=== PATIENT | female | born 1930 | race Caucasian/White ===

== ENCOUNTER 2017-05-06 03:58 | Emergency (ER) | payer OTHER ==
[~2017-05-06] VITALS: Ht 152.4 cm; Wt 50.0 kg
[~2017-05-06 03:58] MED LIST: ASPIRIN81 M1 PO; ATIVAN1 MG PO; AVALIDE 300/1 TABLET; Advair HFA 115/21 IH; Aspirin E.C. PO; Augmentin PO; BAYER CHILDREN'81 M1 PO; CEFTIN500 MG PO; COUMADIN,JANTOVE1 MG PO; COUMADIN,JANTOVE5 MG PO; Calan PO; Coumadin,Jantoven PO; ESCITALOPRAM OXA5 MG PO; FISH OIL300 MG PO; FUROSEMIDE40 MG PO; Fish Oil PO; Flonase BOTH NARES; Flora-Q,Risaquad PO; Habitrol,Nicoderm CQ TD; Humibid LA,Mucinex PO; K-Dur PO; Lasix PO; MUCINEX600 MG PO; MULTIVITAMIN1 EAC2 PO; NORCO 5/3251 TABLET PO; Oscal 500 w/Vitamin PO; PRINIVIL10 MG PO; PROVENTIL,2.5 MG/0.5 IH; PROVENTIL,2.5 MG/3 M IH; Protonix PO; Senokot,Sennagen PO; THERAGRAN1 TABLET PO; Ultram PO; VERAPAMIL HCL80 MG PO; VITAMIN B12-FO1 EACH PO; Vicodin,Norco 5/325 PO; WARFARIN SODIUM5 MG PO; Xanax PO; Xopenex IH; Zestril,Prinivil PO; predniSONE PO
[2017-05-06 06:03] LABS: BASOPHIL COUNT 0.1 K/uL (0-0.1); EOSINOPHIL (%) 0.2 % (0-5); HEMATOCRIT 39.1 % (36.0-46.0); IMMATURE GRANULOCYTE (%) 0.5 % (0.0-0.7); IMMATURE GRANULOCYTE COUNT 0.1 K/uL; INSTRUMENT ABS NEUTROPHIL CT 10.9 K/uL; LYMPHOCYTE COUNT 1.1 K/uL (1.0-2.8); MCH 30.7 PG (29.0-34.0); MCV 90.3 FL (83-99); MEAN PLAT.VOLUME 9.9 uM^3 (9.5-12.4); MONOCYTE (%) 6.4 % (3-12); MONOCYTE COUNT 0.8 K/uL (0-0.8); NEUTROPHIL (%) 83.7 % (45-76); NEUTROPHIL COUNT 10.9 K/uL (1.8-6.4); PLATELET COUNT 364 K/uL (156-360); RBC DIS.WIDTH-CV 13.9 % (11.8-14.6); RBC DIS.WIDTH-SD 46.5 % (39-53); RED BLOOD COUNT 4.33 M/uL (3.80-5.20)
[2017-05-06 06:09] LABS: PROTHROMBIN TIME 11.7 SEC (10.2-12.9)
[2017-05-06 06:11] LABS: PTT 29.8 SEC (25-37)
[2017-05-06 06:14] LABS: CHLORIDE 98 mEq/L (99-109); POTASSIUM 2.7 mEq/L (3.7-5.4); SODIUM 135 mEq/L (136-147)
[2017-05-06 06:15] LABS: GLUCOSE 113 mg/dL (70-99)
[2017-05-06 06:17] LABS: ANION GAP 13 MEQ/L (2-14)
[2017-05-06 06:19] LABS: GFR ESTIMATE (CALCULATED) 41 mL/min/
[2017-05-06 06:20] LABS: UREA NITROGEN (BUN) 15 mg/dL (9-23)
[2017-05-06] MEDS ORDERED: TYLENOL WITH C1 EACH PO (06:59)
[2017-05-06 11:15] VITALS: BP 118/57
== END 2017-05-06 12:03 | disposition short-term general hospital (02) ==
LOC: EME → EDBD 03:58 → EME 12:03
PROVIDERS: Emergency Medicine
PROC: 3E0234Z Introduction of Serum, Toxoid and Vaccine into Muscle, Percutaneous Approach (ICD-10-PCS; principal; 2017-05-06)
DX: S72.431A Displaced fracture of medial condyle of right femur, initial encounter for closed fracture (principal); S72.421A Displaced fracture of lateral condyle of right femur, initial encounter for closed fracture; S51.811A Laceration without foreign body of right forearm, initial encounter; W01.0XXA Fall on same level from slipping, tripping and stumbling without subsequent striking against object, initial encounter; Y92.009 Unspecified place in unspecified non-institutional (private) residence as the place of occurrence of the external cause; Z23 Encounter for immunization; I10 Essential (primary) hypertension; J44.9 Chronic obstructive pulmonary disease, unspecified; Z86.711 Personal history of pulmonary embolism; Z86.718 Personal history of other venous thrombosis and embolism; Z79.82 Long term (current) use of aspirin; Z79.01 Long term (current) use of anticoagulants; Z79.52 Long term (current) use of systemic steroids; Z72.0 Tobacco use
CPT/HCPCS: 73090; 73564; 73700; 80048; 85025; 85610; 85730; 86850; 86900; 86901; 93005; 99281; 99285; J2270; J3480; J7030

== ENCOUNTER 2017-06-26 16:42 | Inpatient (IN) | payer OTHER ==
[~2017-06-26] VITALS: Ht 152.4 cm; Wt 42.5 kg
[~2017-06-26 16:42] MED LIST changes: +TYLENOL WITH C1 EACH PO
[2017-06-26 18:02] LABS: HEMATOCRIT 36.3 % (36.0-46.0); HEMOGLOBIN 12.4 G/DL (11.9-15.5); MCH 29.4 PG (29.0-34.0); MCHC 34.2 G/DL (30.0-36.0); PLATELET COUNT 787 K/uL (156-360); RBC DIS.WIDTH-CV 14.8 % (11.8-14.6); RBC DIS.WIDTH-SD 47.1 % (39-53); RED BLOOD COUNT 4.22 M/uL (3.80-5.20); WHITE BLOOD COUNT 12.9 K/uL (4.1-10.2)
[2017-06-26 18:10] LABS: CHLORIDE 95 mEq/L (99-109); POTASSIUM 2.6 mEq/L (3.7-5.4); SODIUM 141 mEq/L (136-147)
[2017-06-26 18:11] LABS: GLUCOSE 109 mg/dL (70-99)
[2017-06-26 18:15] LABS: CREATININE 1.4 mg/dL (0.6-1.3); GFR ESTIMATE (CALCULATED) 38 mL/min/
[2017-06-26 18:16] LABS: UREA NITROGEN (BUN) 15 mg/dL (9-23)
[2017-06-26 20:54] LABS: INTER. NORMALIZED RATIO 1.2
[2017-06-26 20:57] LABS: PTT 31.3 SEC (25-37)
[2017-06-27 00:13] LABS: MAGNESIUM 1.5 mg/dL (1.3-2.7)
[2017-06-27 00:23] LABS: TROP-I INTERPRETATION NEGATIVE; TROPONIN-I 0.08 ng/mL (0.0-0.30)
[2017-06-27 03:53] VITALS: BP 179/91
[2017-06-27 05:49] LABS: BASOPHIL (%) 0.3 % (0-1); EOSINOPHIL (%) 0.2 % (0-5); HEMATOCRIT 33.6 % (36.0-46.0); IMMATURE GRANULOCYTE (%) 0.5 % (0.0-0.7); LYMPHOCYTE (%) 16.4 % (15-42); LYMPHOCYTE COUNT 1.7 K/uL (1.0-2.8); MCH 28.3 PG (29.0-34.0); MCHC 32.7 G/DL (30.0-36.0); MCV 86.4 FL (83-99); MONOCYTE (%) 11.1 % (3-12); MONOCYTE COUNT 1.2 K/uL (0-0.8); NEUTROPHIL (%) 71.5 % (45-76); NEUTROPHIL COUNT 7.4 K/uL (1.8-6.4); PLATELET COUNT 684 K/uL (156-360); RBC DIS.WIDTH-CV 14.8 % (11.8-14.6); RBC DIS.WIDTH-SD 47.1 % (39-53); RED BLOOD COUNT 3.89 M/uL (3.80-5.20); WHITE BLOOD COUNT 10.4 K/uL (4.1-10.2)
[2017-06-27 06:01] LABS: TROP-I INTERPRETATION NEGATIVE; TROPONIN-I 0.07 ng/mL (0.0-0.30)
[2017-06-27 06:14] LABS: CHLORIDE 93 MEQ/L (99-109); GFR ESTIMATE (CALCULATED) 56 mL/min/; GLUCOSE 87 mg/dL (70-99); POTASSIUM 2.5 MEQ/L (3.7-5.4); SODIUM 139 MEQ/L (136-147); UREA NITROGEN (BUN) 11 mg/dL (9-23)
[2017-06-27 07:32] VITALS: BP 146/79
[2017-06-27 08:10] LABS: THYROTROPIN (TSH) 2.2 MIU/L (0.4-5.5)
[2017-06-27 11:46] VITALS: BP 130/74
[2017-06-27] MEDS ORDERED: PROTONIX40 MG PO (11:50)
[2017-06-27] MEDS ORDERED: CALAN80 MG PO (11:50)
[2017-06-27] MEDS ORDERED: LASIX20 MG PO (11:50)
[2017-06-27] MEDS ORDERED: LOPRESSOR25 MG PO (11:51)
[2017-06-27] MEDS ORDERED: IBUPROFEN800 MG PO (11:51)
[2017-06-27] MEDS ORDERED: LIDODERM 5% P1 PATCH TD (11:52)
[2017-06-27] MEDS ORDERED: MIRALAX17 GM PO (11:52)
[2017-06-27] MEDS ORDERED: ASPIR 8181 M1 PO (11:53)
[2017-06-27] MEDS ORDERED: MUCINEX1200 MG PO (11:54)
[2017-06-27 15:44] VITALS: BP 148/67
[2017-06-27 20:00] VITALS: BP 127/69
[2017-06-28 01:57] VITALS: BP 116/63
[2017-06-28 04:44] VITALS: BP 133/71
[2017-06-28 07:02] LABS: HEMATOCRIT 30.4 % (36.0-46.0); HEMOGLOBIN 9.9 G/DL (11.9-15.5); MCH 28.2 PG (29.0-34.0); MCHC 32.6 G/DL (30.0-36.0); MCV 86.6 FL (83-99); PLATELET COUNT 634 K/uL (156-360); RBC DIS.WIDTH-CV 14.9 % (11.8-14.6); RBC DIS.WIDTH-SD 47.4 % (39-53); RED BLOOD COUNT 3.51 M/uL (3.80-5.20); WHITE BLOOD COUNT 8.3 K/uL (4.1-10.2)
[2017-06-28 07:18] VITALS: BP 142/65
[2017-06-28 07:25] LABS: CHLORIDE 95 MEQ/L (99-109); CREATININE 0.9 MG/DL (0.6-1.3); GFR ESTIMATE (CALCULATED) > 59 mL/min/; GLUCOSE 86 mg/dL (70-99); POTASSIUM 2.8 MEQ/L (3.7-5.4); SODIUM 140 MEQ/L (136-147); UREA NITROGEN (BUN) 10 mg/dL (9-23)
[2017-06-28 08:21] LABS: MAGNESIUM 1.9 mg/dl (1.3-2.7)
[2017-06-28 11:01] VITALS: BP 135/65
[2017-06-28 15:12] VITALS: BP 125/67
[2017-06-28 19:04] VITALS: BP 123/56
[2017-06-29] VITALS: BP 130/62
[2017-06-29 04:03] VITALS: BP 143/73
[2017-06-29 06:44] LABS: HEMATOCRIT 30.2 % (36.0-46.0); HEMOGLOBIN 9.7 G/DL (11.9-15.5); MCH 28.3 PG (29.0-34.0); MCHC 32.1 G/DL (30.0-36.0); PLATELET COUNT 610 K/uL (156-360); RBC DIS.WIDTH-SD 48.5 % (39-53); RED BLOOD COUNT 3.43 M/uL (3.80-5.20); WHITE BLOOD COUNT 7.8 K/uL (4.1-10.2)
[2017-06-29 07:20] LABS: CHLORIDE 96 MEQ/L (99-109); CREATININE 0.8 MG/DL (0.6-1.3); GFR ESTIMATE (CALCULATED) > 59 mL/min/; GLUCOSE 81 mg/dL (70-99); SODIUM 135 MEQ/L (136-147); UREA NITROGEN (BUN) 11 mg/dL (9-23)
[2017-06-29 07:25] VITALS: BP 155/78
[2017-06-29 11:06] VITALS: BP 151/71
[2017-06-29 15:07] VITALS: BP 143/70
[2017-06-29 19:20] VITALS: BP 133/69
[2017-06-30 00:14] VITALS: BP 139/74
[2017-06-30 03:33] VITALS: BP 163/69
[2017-06-30 07:53] VITALS: BP 141/78
[2017-06-30] MEDS ORDERED: ELIQUIS5 MG PO ×2 (11:39→11:40)
[2017-06-30] MEDS ORDERED: LOPRESSOR25 MG PO (11:40)
[2017-06-30] MEDS ORDERED: KEFLEX500 MG PO (11:45)
[2017-06-30 13:44] VITALS: BP 122/63
== END 2017-06-30 15:17 | DRG 863 ==
LOC: EME 16:42 → 5SOUTH 23:06 → EDOF 23:06 → ENRESERV 23:10 → 5SOUTH 06-27 03:38 → ENRESERVTM 06-27 23:06 → 5SOUTH 06-30 15:17
PROVIDERS: Emergency Medicine; Hospitalist; Physician Assistant
DX: T81.4XXA Infection following a procedure, initial encounter (principal); I82.431 Acute embolism and thrombosis of right popliteal vein; I82.411 Acute embolism and thrombosis of right femoral vein; L03.115 Cellulitis of right lower limb; E87.6 Hypokalemia; Y83.8 Other surgical procedures as the cause of abnormal reaction of the patient, or of later complication, without mention of misadventure at the time of the procedure; I48.91 Unspecified atrial fibrillation; J44.9 Chronic obstructive pulmonary disease, unspecified; I11.0 Hypertensive heart disease with heart failure; I50.9 Heart failure, unspecified; J98.11 Atelectasis; Z86.711 Personal history of pulmonary embolism; Z79.01 Long term (current) use of anticoagulants; Z86.718 Personal history of other venous thrombosis and embolism; N17.9 Acute kidney failure, unspecified; K21.9 Gastro-esophageal reflux disease without esophagitis; M75.100 Unspecified rotator cuff tear or rupture of unspecified shoulder, not specified as traumatic; E78.5 Hyperlipidemia, unspecified; Z87.891 Personal history of nicotine dependence; E83.42 Hypomagnesemia; H91.90 Unspecified hearing loss, unspecified ear; F41.9 Anxiety disorder, unspecified
CPT/HCPCS: 71046; 71275; 73552; 73564; 80048; 83605; 83735; 84443; 84484; 85025; 85027; 85610; 85730; 87040; 93005; 93306; 93971; 99281; 99285; J0690; J0696; J3370; J3475; J3480; J7030; J7050; S0039